=== PATIENT | male | born 1975 | race Caucasian/White ===

== ENCOUNTER → 2017-08-20 | Outpatient (CLI) | payer OTHER ==
--- NOTE | 2017-08-20 13:25 | PCVCIMAG ---
APPROVED REPORT Exam: Stress Echocardiogram Indication: Fatigue, ABN EKG, HPL, Congential septal defect repair Patient Location: Echo lab Stress Nurse: Hannah Chandra RN Status: routine Ht: 5 ft 6 in HR: 88 bpm BP: 138/82 mmHg Rhythm: NSR Procedure The patient underwent an Exercise Stress Test using the Ede Protocol. Blood pressure, heart rate, and EKG were monitored. An Echocardiogram was performed by photographic equipment technician in four stages in quad fashion. At peak stress, four selected images were obtained and placed side by side with resting images for comparison. Stress Test Details Stress Test: Exercise stress testing was performed using a Ede protocol. HR Resting HR: 88 bpmMax Heart Rate (APMHR): 178 bpm Max HR Achieved: 148 bpmTarget HR (85% APMHR): 151 bpm % of APMHR: 83 Recovery HR: 118 bpm HR response to stress: Normal HR response to stress BP Resting BP: 138/82 mmHg Max BP: 160/80 mmHg Recovery BP: 142/82 mmHg ECG Resting ECG: Sinus Rhythm Stress ECG: Sinus Rhythm Recovery ECG: Sinus Rhythm Clinical Reason for Termination: knee pain, fatigue Exercise duration: 9 min 00 sec Highest Stage Achieved: Stage 3: 3.4 mph at 14% grade. Exercise capacity: 10.10 METs Overall Exercise Capacity for Age: Average Pre-Stress Echo The resting Echocardiogram showed normal left ventricular contractility with an estimated Ejection Fraction of about >55%. Normal wall motion in all segments on baseline images. Post-Stress Echo The stress Echocardiogram showed normal left ventricular contractility with an estimated Ejection Fraction of about 60-65%. Normal augmentation of wall motion in all segments on post stress images. Clinical No clinical or ECG evidence for ischemia. Conclusion Clinical Response: Non-ischemic Exercise Capacity: Average Stress ECG Response: Non-ischemic Stress Echo Images: Non-ischemic Other Information Study Quality: Adequate
--- NOTE | 2017-08-20 13:28 | PCVCIMAG ---
APPROVED REPORT Study performed: 08/20/2017 09:16:24 EXAM: Comprehensive 2D, Doppler, and color-flow Echocardiogram Patient Location: Echo lab BSA: 2.00 HR: 88 bpmBP: 138/82 mmHg Rhythm: NSR Other Information Study Quality: Good Indications Fatigue ABN EKG, Congential Septal Defect Repair 2D Dimensions LVEF(%): 63.94 (>50%) IVSd: 10.02 (7-11mm)LVOT Diam: 21.32 (18-24mm) LVDd: 55.30 mm PWd: 9.38 (7-11mm)Ascending Ao: 29.25 (22-36mm) LVDs: 35.83 (25-40mm) Left Atrium: 41.12 (27-40mm) Aortic Root: 31.66 mm LV Single Plane 4CH: 55.00 % LV Single Plane 2CH: 53.80 %Lutz's LVEF: 54.40 % Biplane EF: 55.0 % Volumes Left Atrial Volume (Systole) Single Plane 4CH: 37.51 mLSingle Plane 2CH: 32.64 mL LA ESV Index: 18.00 mL/m2 Aortic Valve AoV Peak Colby.: 1.64 m/s AO Peak Gr.: 10.71 mmHgLVOT Max P.61 mmHg LVOT Max V: 0.95 m/s MARTITA Vmax: 2.07 cm2 AI Vmax: 3.65 m/s AI Hodgeman: 1.54 m/s2 AI PHT: 727.76 ms Mitral Valve E/A Ratio: 1.2 MV Decel. Time: 246.86 ms MV E Max Colby.: 0.93 m/s MV A Colby.: 0.79 m/s IVRT: 83.04 ms TDI E/Lateral E': 11.63E/Medial E': 13.29 Medial E' Colby.: 0.07 m/s Lateral E' Colby.: 0.08 m/s Pulmonary Valve PV Peak Colby.: 1.02 m/sPV Peak Gr.: 4.15 mmHg Pulmonary Vein P Vein S: 0.55 m/sP Vein A: 0.38 m/s P Vein D: 0.56 m/sP Vein A Dur.: 72.7 msec P Vein S/D Ratio: 0.98 Tricuspid Valve RAP Estimate: 7.00 mmHg Left Ventricle The left ventricle is normal size. There is normal LV segmental wall motion. There is normal left ventricular wall thickness.Prior VSD repair looks normal Left ventricular systolic function is normal. The left ventricular ejection fraction is within the normal range. LVEF is >55%. The left ventricular diastolic function is normal. Right Ventricle The right ventricle is normal size. The right ventricular systolic function is normal. Atria The left atrium size is normal. The right atrium size is normal. Aortic Valve The aortic valve is normal in structure. Mild aortic regurgitation. There is no aortic valvular stenosis. Mitral Valve The mitral valve is normal in structure. There is no mitral valve regurgitation noted. No evidence of mitral valve stenosis. Tricuspid Valve The tricuspid valve is normal in structure. There is no tricuspid valve regurgitation noted. Pulmonic Valve The pulmonary valve is normal in structure. Mild pulmonic regurgitation. Great Vessels The aortic root is normal in size. IVC is normal in size and collapses with >50% inspiration Pericardium There is no pericardial effusion. <Conclusion> The left ventricle is normal size. Left ventricular systolic function is normal. The left ventricular ejection fraction is within the normal range. LVEF is >55%. The left ventricular diastolic function is normal. The right ventricle is normal size. The left atrium size is normal. Mild aortic regurgitation. There is no mitral valve regurgitation noted. There is no tricuspid valve regurgitation noted. There is no pericardial effusion. There is normal left ventricular wall thickness.Prior VSD repair appears normal
== END | disposition home or self-care (01) ==
LOC: PCVCIMAG 09:21
PROVIDERS: ATTEND Internal Medicine Cardiovascular Disease
DX: I35.1 Nonrheumatic aortic (valve) insufficiency (principal); I37.1 Nonrheumatic pulmonary valve insufficiency; R53.83 Other fatigue; R94.31 Abnormal electrocardiogram [ECG] [EKG]; Q21.1 Atrial septal defect
CPT/HCPCS: 93306; 93351